=== PATIENT | female | born 1960 | race Caucasian/White ===

== ENCOUNTER 2017-05-11 13:32 | Emergency (ER) | payer MEDICARE, MEDICAID ==
[2017-05-11 14:02] LABS: BASOPHILS 0.3 % (0.0-2); HEMATOCRIT 38.3 % (36.0-48.0); HEMOGLOBIN 11.9 g/dL (12.0-16.0); IMMATURE GRANULOCYTES 0.2 % (0-5); LYMPHOCYTES 7.2 % (15-50); MCHC 31.1 g/dL (31.0-37.0); MEAN PLATELET VOLUME 10.8 fL (7.4-10.4); NEUTROPHILS 83.3 % (40-80); PLATELET COUNT 244 10x3/uL (130-400); RDW 13.8 % (11.5-14.5); WBC 8.7 10x3/uL (4.8-10.8)
== END 2017-05-11 15:43 | disposition home or self-care (01) ==
LOC: D.ER 13:32 → EDSEX 13:32 → D.ER 15:43
PROVIDERS: Emergency Medicine
DX: J20.9 Acute bronchitis, unspecified (principal); J06.9 Acute upper respiratory infection, unspecified; I10 Essential (primary) hypertension; E11.9 Type 2 diabetes mellitus without complications; F17.200 Nicotine dependence, unspecified, uncomplicated

== ENCOUNTER 2017-09-01 13:48 | Emergency (ER) | payer MEDICARE | END 2017-09-01 18:17 | disposition home or self-care (01) | LOC: D.ER 13:48 | DX: J06.9 Acute upper respiratory infection, unspecified (principal); J20.9 Acute bronchitis, unspecified; I10 Essential (primary) hypertension; I25.10 Atherosclerotic heart disease of native coronary artery without angina pectoris; E11.9 Type 2 diabetes mellitus without complications; K21.9 Gastro-esophageal reflux disease without esophagitis; J44.9 Chronic obstructive pulmonary disease, unspecified; F17.200 Nicotine dependence, unspecified, uncomplicated ==